=== PATIENT | male | born 1930 | race Caucasian/White ===

== ENCOUNTER 2017-03-11 13:00 | Outpatient (CLI) | payer MEDICARE, MEDICAID ==
--- NOTE | 2017-03-11 17:16 | Diagnostic Imaging Report ---
Indication: Abnormal chest x-ray. Cough. Technique: Noncontrast CT scan of the chest obtained utilizing automated exposure control. Axial, sagittal and coronal reformats. CT dose: Total DLP 518 mGycm; CTDI vol 16 mGy Comparison: 09/11/2010 Findings: There is hyperexpansion of the lungs with flattening the diaphragms. Upper lobe predominant emphysematous changes are noted bilaterally, progressed from the prior exam. Dependent atelectasis noted in the lung bases. There is an unchanged 4 mm calcified granuloma in the left lower lobe. No focal airspace consolidation suggest pneumonia. No pleural effusion or pneumothorax. 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 No evidence to suggest interstitial lung disease/pulmonary fibrosis. No evidence of honeycombing. There is borderline cardiomegaly. There is hypoattenuation of the blood pool relative to the ventricular septum suggesting anemia. Aortic valvular and coronary arterial calcifications are noted. There is pericardial thickening versus trace effusion. Thoracic aorta is moderately calcified. There is a common origin of the brachiocephalic and left common carotid arteries. The main pulmonary artery is enlarged, measuring 3.7 cm in diameter. No pathologically enlarged hilar or mediastinal lymphadenopathy identified. Imaged portions of the thyroid are unremarkable in appearance. 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 This was seen previously. Multiple low-attenuation lesions are noted within the bilateral kidneys, possibly cysts. There are degenerative changes of the spine. No suspicious bony abnormality identified. IMPRESSION: * Upper lobe predominant emphysematous changes, progressed since 10/01/2010. * Enlargement of the main pulmonary artery suggesting pulmonary arterial hypertension. * Findings suggestive of anemia. * Pericardial thickening versus trace pericardial effusion. * Coronary artery calcifications. 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 Additional findings as above.
== END 2017-03-11 15:00 | disposition home or self-care (01) ==
LOC: CAT 13:00
DX: R05 Cough (principal); D35.01 Benign neoplasm of right adrenal gland
CPT/HCPCS: 71250